=== PATIENT | male | born 2000 | race African-American/Black ===

== ENCOUNTER 2021-08-20 11:38 | Emergency (ER) | payer OTHER ==
[2021-08-20 12:15] VITALS: BP 144/78; PULSE 67; RESP 18; TEMP 98.2
--- NOTE | 2021-08-20 12:46 | ED ---
General Adult HPI - General Chief complaint: Headache Stated complaint: headache, sore arm, wants Covid test Time Seen by Provider: 08/20/21 12:19 Source: patient Mode of arrival: ambulatory - History of Present Illness Initial comments: 21-year-old male presents to the emergency room for a chief complaint of headache. Patient states he hasn't felt well and has had a headache for the past 3 or 4 days. States it worsened last night while he was at work. He denies blurry vision or nausea vomiting. Denies fevers. Patient is also complaining of left shoulder pain. States it hurts to raise his arm above shoulder level. He does not recall injuring this. Patient is also requesting an inhaler. States he just moved to the area and did not bring his and would like a prescription.Patient has no other complaints at this time including shortness of breath, chest pain, abdominal pain, nausea or vomiting, or visual changes. - Related Data Allergies Allergy/AdvReac Type Severity Reaction Status Date / Time guaifenesin [From Robitussin] AdvReac Anaphylaxis Verified 08/20/21 12:15 Review of Systems ROS Statement: Those systems with pertinent positive or pertinent negative responses have been documented in the HPI. ROS Other: All systems not noted in ROS Statement are negative. Past Medical History Past Medical History: Asthma History of Any Multi-Drug Resistant Organisms: None Reported Past Surgical History: No Surgical Hx Reported Past Psychological History: No Psychological Hx Reported Smoking Status: Current every day smoker Past Alcohol Use History: None Reported Past Drug Use History: None Reported General Exam General appearance: alert, in no apparent distress Head exam: Present: atraumatic Eye exam: Present: normal appearance, PERRL, EOMI. Absent: scleral icterus, conjunctival injection ENT exam: Present: normal exam, mucous membranes moist Neck exam: Present: normal inspection, full ROM. Absent: tenderness Respiratory exam: Present: normal lung sounds bilaterally. Absent: respiratory distress, wheezes Cardiovascular Exam: Present: regular rate, normal rhythm, normal heart sounds GI/Abdominal exam: Present: soft, normal bowel sounds. Absent: distended, tenderness Extremities exam: Present: normal capillary refill (Capillary refill less than 2 seconds, radial pulse 2+ left upper extremity). Absent: full ROM (Patient has 90 flexion and abduction and of the left shoulder), tenderness, joint swelling Neurological exam: Present: alert, oriented X3, normal gait Course Vital Signs 08/20/21 12:10 Temperature 98.2 F Pulse Rate 67 Respiratory 18 Rate Blood Pressure 144/78 O2 Sat by Pulse 100 Oximetry Medical Decision Making - Medical Decision Making Vitals are stable. No focal neurologic deficits. HPI and physical exam as documented. COVID-19 did result as negative. Chest x-ray shows no acute cardiopulmonary process. Shoulder x-ray shows no acute osseous abnormality. CT brain shows no acute cranial hemorrhage mass effect or midline shift. Toradol was ordered for patient. Before I could go back in there he is adamantly requesting discharge to the nurse. I did go reevaluate him and he states he wants to leave. I did recommend he follow up with primary care regarding his headache and shoulder pain. He will return here for any worsening symptoms. - Lab Data Lab Results 08/20/21 Range/Units 12:27 Coronavirus (PCR) Not Detected (Not Detectd) Disposition Clinical Impression: Shoulder pain, left, Headache Disposition: HOME SELF-CARE Condition: Good Instructions (If sedation given, give patient instructions): Acute Headache (ED) Additional Instructions: Take Motrin and Tylenol for pain. Follow-up with primary care in 1-2 days. Return to the emergency room for any worsening symptoms. Is patient prescribed a controlled substance at d/c from ED?: No Referrals: Jass Gonzalez MD [REFERRING] - 1-2 days Time of Disposition: 14:13
--- NOTE | 2021-08-20 13:36 | XR ---
EXAMINATION TYPE: XR chest 2V, XR shoulder complete 3 views LT DATE OF EXAM: 08/20/2021 COMPARISON: None HISTORY: 21-year-old male with near syncopal episode and pain, dysrhythmia. FINDINGS: Chest: The cardiomediastinal silhouette, aorta, and pulmonary vasculature are within normal limits. There is some strandy areas of atelectasis. No consolidation or pleural effusion. Normal variant azygos fissu re noted. Left shoulder: No tendinous or bursal calcifications. AC joint appears intact. Subacromial space is preserved. No ac luz maria fracture, subluxation, or dislocation. IMPRESSION: 1. Chest: No acute cardiopulmonary process. 2. Left shoulder: No acute osseous abnormality seen.
--- NOTE | 2021-08-20 13:41 | CT ---
EXAMINATION TYPE: CT brain wo con DATE OF EXAM: 08/20/2021 COMPARISON: None HISTORY: Headache CT DLP: 1084.4 mGycm. Automated Exposure Control for Dose Reduction was Utilized. TECHNIQUE: CT scan of the head is performed without contrast. FINDINGS: There is no acute intracranial hemorrhage, mass effect, or midline shift identified. The ventricles and sulci are within normal limits in size. The globes are intact and the visualized sin uses are clear. Low-lying cerebellar tonsils at the level of foramen magnum. IMPRESSION: No acute intracranial hemorrhage, mass effect, or midline shift is seen.
[2021-08-20] MEDS ORDERED: KETOROLAC 15 MG/ML 1 ML VIAL IM STA (14:02)
== END 2021-08-20 14:23 | disposition home or self-care (01) ==
LOC: EC 11:38
DX: R51.9 Headache, unspecified (principal); M25.512 Pain in left shoulder; F17.200 Nicotine dependence, unspecified, uncomplicated; J45.909 Unspecified asthma, uncomplicated; Z20.822 Contact with and (suspected) exposure to COVID-19; Z88.8 Allergy status to other drugs, medicaments and biological substances
CPT/HCPCS: 87635; 73030; 71046; 70450; 99284; 96372; J1885

== ENCOUNTER 2021-10-04 08:51 | Emergency (ER) | payer OTHER ==
[2021-10-04 09:01] VITALS: RESP 18
--- NOTE | 2021-10-04 09:52 | ED ---
General Adult HPI - General Chief complaint: Upper Respiratory Infection Stated complaint: Covid test Time Seen by Provider: 10/04/21 09:00 Source: patient, RN notes reviewed Mode of arrival: ambulatory Limitations: no limitations - History of Present Illness Initial comments: 21-year-old male presents emergency apartment with chief complaint of possible COVID-19. Patient states his roommate tested positive. Patient had a mild headache no other major symptoms. Denies any fevers chills nausea vomiting diarrhea constipation or shortness breath no other complaints. - Related Data Previous Rx's Medication Instructions Recorded Albuterol Inhaler [Ventolin Hfa 2 puff INHALATION RT-QID PRN #8 gm 08/20/21 Inhaler] Allergies Allergy/AdvReac Type Severity Reaction Status Date / Time guaifenesin [From Robitussin] AdvReac Anaphylaxis Verified 10/04/21 09:01 Review of Systems ROS Statement: Those systems with pertinent positive or pertinent negative responses have been documented in the HPI. ROS Other: All systems not noted in ROS Statement are negative. Past Medical History Past Medical History: Asthma History of Any Multi-Drug Resistant Organisms: None Reported Past Surgical History: No Surgical Hx Reported Past Psychological History: No Psychological Hx Reported Smoking Status: Current every day smoker, Vaper Past Alcohol Use History: None Reported Past Drug Use History: None Reported General Exam Limitations: no limitations General appearance: alert, in no apparent distress Head exam: Present: atraumatic, normocephalic, normal inspection Eye exam: Present: normal appearance, PERRL, EOMI. Absent: scleral icterus, conjunctival injection, periorbital swelling ENT exam: Present: normal exam, mucous membranes moist Neck exam: Present: normal inspection. Absent: tenderness, meningismus, lymphadenopathy Respiratory exam: Present: normal lung sounds bilaterally. Absent: respiratory distress, wheezes, rales, rhonchi, stridor Cardiovascular Exam: Present: regular rate, normal rhythm, normal heart sounds. Absent: systolic murmur, diastolic murmur, rubs, gallop, clicks Course Vital Signs 10/04/21 10/04/21 08:59 09:20 Temperature 97.8 F Pulse Rate 75 Respiratory 18 18 Rate Blood Pressure 131/81 O2 Sat by Pulse 98 Oximetry Medical Decision Making - Medical Decision Making COVID-19 is negative. Patient be discharged in stable condition return parameters were discussed. - Lab Data Lab Results 10/04/21 Range/Units 09:11 Coronavirus (PCR) Not Detected (Not Detectd) Disposition Clinical Impression: Encounter for laboratory testing for COVID-19 virus, Acute upper respiratory infection Disposition: HOME SELF-CARE Condition: Stable Instructions (If sedation given, give patient instructions): Upper Respiratory Infection (ED) Additional Instructions: Please return to the Emergency Department if symptoms worsen or any other concerns. Is patient prescribed a controlled substance at d/c from ED?: No Referrals: None,Stated [Primary Care Provider] - 1-2 days Time of Disposition: 09:51
[2021-10-04 10:14] VITALS: BP 128/80; PULSE 78; TEMP 98.1
== END 2021-10-04 10:14 | disposition home or self-care (01) ==
LOC: EC 08:51
DX: J06.9 Acute upper respiratory infection, unspecified (principal); J45.909 Unspecified asthma, uncomplicated; F17.200 Nicotine dependence, unspecified, uncomplicated; Z20.822 Contact with and (suspected) exposure to COVID-19
CPT/HCPCS: 87635; 99284

== ENCOUNTER 2021-10-09 08:39 | Emergency (ER) | payer OTHER ==
[2021-10-09 08:48] VITALS: BP 137/81; PULSE 87; RESP 16; TEMP 97.3
--- NOTE | 2021-10-09 09:30 | ED ---
General Adult HPI - General Chief complaint: Recheck/Abnormal Lab/Rx Stated complaint: covid test Time Seen by Provider: 10/09/21 08:42 Source: patient, RN notes reviewed Mode of arrival: ambulatory Limitations: no limitations - History of Present Illness Initial comments: This a 21-year-old male presents emergency Department requestin testing. Patient states that he had a rheumatoid tested positive he is to 50 days ago which was negative. Patient denies any significant symptoms. Patient offers no complaints. - Related Data Previous Rx's Medication Instructions Recorded Albuterol Inhaler [Ventolin Hfa 2 puff INHALATION RT-QID PRN #8 gm 08/20/21 Inhaler] Allergies Allergy/AdvReac Type Severity Reaction Status Date / Time guaifenesin [From Robitussin] AdvReac Anaphylaxis Verified 10/09/21 08:48 Review of Systems ROS Statement: Those systems with pertinent positive or pertinent negative responses have been documented in the HPI. ROS Other: All systems not noted in ROS Statement are negative. Past Medical History Past Medical History: Asthma History of Any Multi-Drug Resistant Organisms: None Reported Past Surgical History: No Surgical Hx Reported Past Psychological History: No Psychological Hx Reported Smoking Status: Current every day smoker, Vaper Past Alcohol Use History: None Reported Past Drug Use History: None Reported General Exam Limitations: no limitations General appearance: alert, in no apparent distress Head exam: Present: atraumatic, normocephalic, normal inspection Eye exam: Present: normal appearance, PERRL, EOMI. Absent: scleral icterus, conjunctival injection, periorbital swelling ENT exam: Present: normal exam, mucous membranes moist Neck exam: Present: normal inspection, full ROM. Absent: tenderness, meningismus, lymphadenopathy Respiratory exam: Present: normal lung sounds bilaterally. Absent: respiratory distress, wheezes, rales, rhonchi, stridor Cardiovascular Exam: Present: regular rate, normal rhythm, normal heart sounds. Absent: systolic murmur, diastolic murmur, rubs, gallop, clicks Course Vital Signs 10/09/21 08:45 Temperature 97.3 F L Pulse Rate 87 Respiratory 16 Rate Blood Pressure 137/81 O2 Sat by Pulse 96 Oximetry Medical Decision Making - Medical Decision Making Patient has negative COVID-19. - Lab Data Lab Results 10/09/21 Range/Units 08:49 Coronavirus (PCR) Not Detected (Not Detectd) Disposition Clinical Impression: Encounter for laboratory testing for COVID-19 virus Disposition: HOME SELF-CARE Condition: Stable Additional Instructions: Please return to the Emergency Department if symptoms worsen or any other concerns. Is patient prescribed a controlled substance at d/c from ED?: No Referrals: None,Stated [Primary Care Provider] - 1-2 days Time of Disposition: 09:30
== END 2021-10-09 09:41 | disposition home or self-care (01) ==
LOC: EC 08:39
DX: Z11.52 Encounter for screening for COVID-19 (principal); Z20.822 Contact with and (suspected) exposure to COVID-19
CPT/HCPCS: 87635; 99282

== ENCOUNTER 2021-11-11 12:21 | Emergency (ER) | payer OTHER ==
[2021-11-11 12:36] VITALS: TEMP 98.1
--- NOTE | 2021-11-11 13:37 | ED ---
General Adult HPI - General Chief complaint: Recheck/Abnormal Lab/Rx Stated complaint: wants covid test/no symptoms Time Seen by Provider: 11/11/21 12:40 Source: patient, RN notes reviewed Mode of arrival: ambulatory Limitations: no limitations - History of Present Illness Initial comments: This is a 21-year-old male who presents to the emergency department for a COVID test. States that this is required by his employer, because he lives with someone who tested positive. Patient states he is completely asymptomatic. - Related Data Previous Rx's Medication Instructions Recorded Albuterol Inhaler [Ventolin Hfa 2 puff INHALATION RT-QID PRN #8 gm 08/20/21 Inhaler] Allergies Allergy/AdvReac Type Severity Reaction Status Date / Time guaifenesin [From Robitussin] AdvReac Anaphylaxis Verified 11/11/21 12:36 Review of Systems ROS Statement: Those systems with pertinent positive or pertinent negative responses have been documented in the HPI. ROS Other: All systems not noted in ROS Statement are negative. Past Medical History Past Medical History: Asthma History of Any Multi-Drug Resistant Organisms: None Reported Past Surgical History: No Surgical Hx Reported Past Psychological History: No Psychological Hx Reported Smoking Status: Current every day smoker, Vaper Past Alcohol Use History: None Reported Past Drug Use History: None Reported General Exam Limitations: no limitations General appearance: alert, in no apparent distress Head exam: Present: atraumatic, normocephalic, normal inspection ENT exam: Present: normal exam, mucous membranes moist Neck exam: Present: normal inspection. Absent: tenderness, meningismus, lymphadenopathy Respiratory exam: Present: normal lung sounds bilaterally. Absent: respiratory distress, wheezes, rales, rhonchi, stridor Cardiovascular Exam: Present: regular rate, normal rhythm, normal heart sounds. Absent: systolic murmur, diastolic murmur, rubs, gallop, clicks Neurological exam: Present: alert, oriented X3, CN II-XII intact Psychiatric exam: Present: normal affect, normal mood Skin exam: Present: warm, dry, intact, normal color. Absent: rash Course Vital Signs 11/11/21 11/11/21 12:32 13:43 Temperature 98.1 F 98.1 F Pulse Rate 74 73 Respiratory 18 16 Rate Blood Pressure 132/87 132/78 O2 Sat by Pulse 98 98 Oximetry Medical Decision Making - Medical Decision Making 21-year-old male who presents to the emergency department for a COVID test. Patient is completely asymptomatic. COVID test was negative. - Lab Data Lab Results 11/11/21 Range/Units 12:36 Coronavirus (PCR) Not Detected (Not Detectd) Disposition Clinical Impression: Exposure to COVID-19 virus Disposition: HOME SELF-CARE Instructions (If sedation given, give patient instructions): Coronavirus Disease 2019 (COVID-19) Is patient prescribed a controlled substance at d/c from ED?: No Referrals: None,Stated [Primary Care Provider] - 1-2 days
[2021-11-11 13:44] VITALS: BP 132/78; PULSE 73; RESP 16
== END 2021-11-11 13:43 | disposition home or self-care (01) ==
LOC: EC 12:21
DX: Z20.822 Contact with and (suspected) exposure to COVID-19 (principal); J45.909 Unspecified asthma, uncomplicated; F17.290 Nicotine dependence, other tobacco product, uncomplicated
CPT/HCPCS: 87635; 99282

== ENCOUNTER 2022-12-16 19:07 | Emergency (ER) | payer OTHER ==
[2022-12-16 19:14] VITALS: BP 142/94; PULSE 72; RESP 20; TEMP 98.9
--- NOTE | 2022-12-16 19:38 | XR ---
EXAMINATION TYPE: XR chest 2V DATE OF EXAM: 12/16/2022 7:31 PM COMPARISON: Chest radiographs from 12/11/2021 TECHNIQUE: XR chest 2V Frontal and lateral views of the chest. CLINICAL INDICATION:Male, 22 years old with history of pain; FINDINGS: Lungs/Pleura: Similar multifocal airspace opacities. No evidence of pneumothorax or pleural effusion. Pulmonary vascularity: Unremarkable. Heart/mediastinum: Cardiomediastinal silhouette is unremarkable. Increased perihilar fullness on the right compared to prior and to a lesser extent the left. Musculoskeletal: No acute osseous pathology. IMPRESSION: 1. Scattered airspace opacities of the lungs, correlate for pneumonia. 2. Increased perihilar fullness bilaterally which is new from prior 12/11/2021. Findings favored to re present lymphadenopathy. Further evaluation with CT chest with IV contrast is recommended. Findings c ould be secondary to #1.
--- NOTE | 2022-12-16 21:18 | ED ---
General Adult HPI - General Chief complaint: Chest Pain Stated complaint: chest pain Time Seen by Provider: 12/16/22 21:02 Source: patient, EMS, RN notes reviewed Mode of arrival: EMS Limitations: no limitations - History of Present Illness Initial comments: 22-year-old -[place] male with a past medical history significant for prescription drug abuse presents the emergency department from [place] with a chief complaint of chest pain. Patient reports that he's had chest pain on and off for years. 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 He reports the chest pain as sharp that will come and go. He is not taking anything for his symptoms. He denies any alcohol or tobacco use recently. He denies any vision changes, vision loss, dizziness, lightheadedness, palpitations, shortness of breath, abdominal pain, nausea or vomiting. - Related Data Previous Rx's Medication Instructions Recorded Albuterol Inhaler [Ventolin Hfa 2 puff INHALATION RT-QID PRN #8 gm 08/20/21 Inhaler] Allergies Allergy/AdvReac Type Severity Reaction Status Date / Time guaifenesin [From Robitussin] AdvReac Anaphylaxis Verified 12/16/22 19:14 Review of Systems ROS Statement: Those systems with pertinent positive or pertinent negative responses have been documented in the HPI. ROS Other: All systems not noted in ROS Statement are negative. Past Medical History Past Medical History: Asthma History of Any Multi-Drug Resistant Organisms: None Reported Past Surgical History: No Surgical Hx Reported Past Psychological History: No Psychological Hx Reported Smoking Status: Current every day smoker, Vaper Past Alcohol Use History: None Reported Past Drug Use History: Marijuana General Exam Limitations: no limitations General appearance: alert, in no apparent distress Head exam: Present: atraumatic, normocephalic, normal inspection Eye exam: Present: normal appearance, PERRL, EOMI. Absent: scleral icterus, conjunctival injection, periorbital swelling ENT exam: Present: normal exam, mucous membranes moist Neck exam: Present: normal inspection. Absent: tenderness, meningismus, lymphadenopathy Respiratory exam: Present: normal lung sounds bilaterally. Absent: respiratory distress, wheezes, rales, rhonchi, stridor Cardiovascular Exam: Present: regular rate, normal rhythm, normal heart sounds. Absent: systolic murmur, diastolic murmur, rubs, gallop, clicks GI/Abdominal exam: Present: soft, normal bowel sounds. Absent: distended, tenderness, guarding, rebound, rigid Extremities exam: Present: normal inspection, full ROM, normal capillary refill. Absent: tenderness, pedal edema, joint swelling, calf tenderness Back exam: Present: normal inspection Neurological exam: Present: alert, oriented X3, CN II-XII intact Psychiatric exam: Present: normal affect, normal mood Skin exam: Present: warm, dry, intact, normal color. Absent: rash Course Vital Signs 12/16/22 19:11 Temperature 98.9 F Pulse Rate 72 Respiratory 20 Rate Blood Pressure 142/94 O2 Sat by Pulse 100 Oximetry EKG Findings - EKG Comments: EKG Findings:: I interpreted the following: EKG performed at 1907. Rate 74 bpm normal sinus rhythm NV interval 141, QRS duration 91, QT/QTc 332/359 Medical Decision Making - Medical Decision Making Was pt. sent in by a medical professional or institution (, PA, COURTROOM CLERK, urgent care, hospital, or care home...) When possible be specific @ -[No] Did you speak to anyone other than the patient for history (EMS, parent, family, police, friend...)? What history was obtained from this source @ -[No] Did you review nursing and triage notes (agree or disagree)? Why? @ -[I reviewed and agree with nursing and triage notes] Were old charts reviewed (outside hosp., previous admission, EMS record, old EKG, old radiological studies, urgent care reports/EKG's, care home records)? Report findings @ -[No old charts were reviewed] Differential Diagnosis (chest pain, altered mental status, abdominal pain women, abdominal pain men, vaginal bleeding, weakness, fever, dyspnea, syncope, headache, dizziness, GI bleed, back pain, seizure, CVA, palpatations, mental health, musculoskeletal)? @ -[not applicable] EKG interpreted by me (3pts min.). @ -[As above] X-rays interpreted by me (1pt min.). @ -chest x-ray negative for any intra pleural process, no cardiomegaly CT interpreted by me (1pt min.). @ -[None done] U/S interpreted by me (1pt. min.). @ -[None done] What testing was considered but not performed or refused? (CT, X-rays, U/S, labs)? Why? @ -[None] What meds were considered but not given or refused? Why? @ -[None] Did you discuss the management of the patient with other professionals (professionals i.e. , PA, COURTROOM CLERK, lab, RT, psych nurse, social media strategist, stove fitter, teacher, first officer and flight instructor, outsole caser)? Give summary @ -[No] Was smoking cessation discussed for >3mins.? @ -[No] Was critical care preformed (if so, how long)? @ -[No] Were there social determinants of health that impacted care today? How? (Homelessness, low income, unemployed, alcoholism, drug addiction, transportation, low edu. Level, literacy, decrease access to med. care, longterm, rehab)? @ -[No] Was there de-escalation of care discussed even if they declined (Discuss DNR or withdrawal of care, Hospice)? DNR status @ -[No] What co-morbidities impacted this encounter? (DM, HTN, Smoking, COPD, CAD, Cancer, CVA, ARF, Chemo, Hep., AIDS, mental health diagnosis, sleep apnea, morbid obesity)? @ -[None] Was patient admitted / discharged? Hospital course, mention meds given and route, prescriptions, significant lab abnormalities, going to OR and other pertinent info. @ -discharged. This is a 22-year-old -[place] male who presents the emergency department with chest pain. Patient had a thorough history and physical exam while in the emergency department. Heart rate regular rate and rhythm, lungs clear to auscultation bilaterally abdomen soft and nontender. States that he would like to return back to [place] for treatment. I discussed the results in detail with the patient verbalized understanding and all questions were addressed. Patient was discharged in stable condition. He was strongly encouraged to follow up with PCP in 1-2 days. Case discussed with TALYA Tinoco who agrees with plan of care Undiagnosed new problem with uncertain prognosis? @ -[No] Drug Therapy requiring intensive monitoring for toxicity (Heparin, Nitro, Insulin, Cardizem)? @ -[No] Were any procedures done? @ -[No] Diagnosis/symptom? @ -chest pain Acute, or Chronic, or Acute on Chronic? @ -admission Uncomplicated (without systemic symptoms) or Complicated (systemic symptoms)? @ -uncomplicated Side effects of treatment? @ -[No] Exacerbation, Progression, or Severe Exacerbation? @ -[No] Poses a threat to life or bodily function? How? (Chest pain, [place], [place], pneumonia, PE, COPD, DKA, ARF, appy, cholecystitis, CVA, Diverticulitis, Homicidal, Suicidal, threat to staff... and all critical care pts) @ -low likelihood - Lab Data Result diagrams: 12/16/22 21:46 12/16/22 21:46 Lab Results 12/16/22 12/16/22 12/16/22 Range/Units 21:46 21:46 21:46 WBC 4.2 (3.8-10.6) k/uL RBC 5.40 (4.30-5.90) m/uL Hgb 15.4 (13.0-17.5) gm/dL Hct 45.2 (39.0-53.0) % MCV 83.7 (80.0-100.0) fL MCH 28.5 (25.0-35.0) pg MCHC 34.0 (31.0-37.0) g/dL RDW 13.5 (11.5-15.5) % Plt Count 398 (150-450) k/uL MPV 6.3 Neutrophils % 63 % Lymphocytes % 21 % Monocytes % 8 % Eosinophils % 3 % Basophils % 1 % Neutrophils # 2.7 (1.3-7.7) k/uL Lymphocytes # 0.9 L (1.0-4.8) k/uL Monocytes # 0.3 (0-1.0) k/uL Eosinophils # 0.2 (0-0.7) k/uL Basophils # 0.0 (0-0.2) k/uL Sodium 137 (137-145) mmol/L Potassium 4.2 (3.5-5.1) mmol/L Chloride 101 (98-107) mmol/L Carbon Dioxide 26 (22-30) mmol/L Anion Gap 10 mmol/L BUN 10 (9-20) mg/dL Creatinine 0.59 L (0.66-1.25) mg/dL Est GFR (CKD-EPI)AfAm >90 (>60 ml/min/1.73 sqM) Est GFR (CKD-EPI)NonAf >90 (>60 ml/min/1.73 sqM) Glucose 89 (74-99) mg/dL Calcium 10.0 (8.4-10.2) mg/dL Total Bilirubin 0.8 (0.2-1.3) mg/dL AST 38 (17-59) U/L ALT 31 (4-49) U/L Alkaline Phosphatase 93 (38-126) U/L Troponin I <0.012 (0.000-0.034) ng/mL Total Protein 7.7 (6.3-8.2) g/dL Albumin 4.3 (3.5-5.0) g/dL Disposition Clinical Impression: Chest pain Disposition: HOME SELF-CARE Condition: Stable Instructions (If sedation given, give patient instructions): Chest Pain (ED) Additional Instructions: please return to the nearest emergency department if symptoms worsen or persist Is patient prescribed a controlled substance at d/c from ED?: No Referrals: None,Stated [REFERRING] - 1-2 days Time of Disposition: 22:27
[2022-12-16 21:57] LABS: Basophils % (A) 1 %; Eosinophils # (A) 0.2 k/uL (0-0.7); Eosinophils % (A) 3 %; HCT 45.2 % (39.0-53.0); HGB 15.4 gm/dL (13.0-17.5); Lymphocytes # (A) 0.9 k/uL (1.0-4.8); Lymphocytes % (A) 21 %; MCH 28.5 pg (25.0-35.0); MCV 83.7 fL (80.0-100.0); Mean Platelet Volume 6.3; Monocytes # (A) 0.3 k/uL (0-1.0); Monocytes % (A) 8 %; Neutrophils # (A) 2.7 k/uL (1.3-7.7); Neutrophils % (A) 63 %; Platelet Count 398 k/uL (150-450); RDW 13.5 % (11.5-15.5); WBC 4.2 k/uL (3.8-10.6)
[2022-12-16 22:11] LABS: ALT 31 U/L (4-49); AST 38 U/L (17-59); African American GFR (CKD) >90 (>60 ml/min/1.73 sqM); Albumin 4.3 g/dL (3.5-5.0); Alkaline Phosphatase 93 U/L (38-126); Anion Gap 10 mmol/L; Blood Urea Nitrogen 10 mg/dL (9-20); Carbon Dioxide 26 mmol/L (22-30); Chloride 101 mmol/L (98-107); Glucose 89 mg/dL (74-99); Non-African American GFR(CKD) >90 (>60 ml/min/1.73 sqM); Potassium 4.2 mmol/L (3.5-5.1); Sodium 137 mmol/L (137-145); Total Bilirubin 0.8 mg/dL (0.2-1.3); Total Protein 7.7 g/dL (6.3-8.2)
== END 2022-12-16 23:29 | disposition home or self-care (01) ==
LOC: EC 19:07
DX: R07.89 Other chest pain (principal); J45.909 Unspecified asthma, uncomplicated; F17.290 Nicotine dependence, other tobacco product, uncomplicated; F12.90 Cannabis use, unspecified, uncomplicated; Z88.8 Allergy status to other drugs, medicaments and biological substances
CPT/HCPCS: 36415; 71046; 80053; 84484; 85025; 93005; 99285

== ENCOUNTER 2023-01-20 15:35 | Emergency (ER) | payer OTHER ==
[2023-01-20 15:52] VITALS: BP 135/84; PULSE 96; RESP 16; TEMP 97.4
--- NOTE | 2023-01-20 16:18 | ED ---
General Adult HPI - General Chief complaint: Skin/Abscess/Foreign Body Stated complaint: LUMP ON NECK-NECK PAIN Time Seen by Provider: 01/20/23 16:04 Source: patient, RN notes reviewed Mode of arrival: ambulatory Limitations: no limitations - History of Present Illness Initial comments: 22-year-old male presents to the emergency department with chief complaint of lump on the right side of his neck. He states that his been there for at least 3 months and states that it has gotten more tender recently. He states that he sometimes feels other lumps in his neck but they are nontender. Denies recent illness, fever, chills. Denies discharge from the area. Past medical history includes asthma. He takes Remeron for sleep. - Related Data Previous Rx's Medication Instructions Recorded Albuterol Inhaler [Ventolin Hfa 2 puff INHALATION RT-QID PRN #8 gm 08/20/21 Inhaler] Allergies Allergy/AdvReac Type Severity Reaction Status Date / Time guaifenesin [From Robitussin] AdvReac Anaphylaxis Verified 01/20/23 15:49 Review of Systems ROS Statement: Those systems with pertinent positive or pertinent negative responses have been documented in the HPI. ROS Other: All systems not noted in ROS Statement are negative. Past Medical History Past Medical History: Asthma History of Any Multi-Drug Resistant Organisms: None Reported Past Surgical History: No Surgical Hx Reported Past Psychological History: No Psychological Hx Reported Smoking Status: Current every day smoker, Vaper Past Alcohol Use History: None Reported Past Drug Use History: Marijuana, Prescription Drug Abuse General Exam Limitations: no limitations General appearance: alert, in no apparent distress Head exam: Present: atraumatic, normocephalic, normal inspection Eye exam: Present: normal appearance ENT exam: Present: normal exam, mucous membranes moist Neck exam: Present: full ROM, other (1.5cm mass on right posterior neck that is mildly ttp, no erythema, possible lymph node) Respiratory exam: Present: normal lung sounds bilaterally. Absent: respiratory distress, wheezes, rales, rhonchi, stridor Cardiovascular Exam: Present: regular rate, normal rhythm, normal heart sounds. Absent: systolic murmur, diastolic murmur, rubs, gallop, clicks GI/Abdominal exam: Present: soft, normal bowel sounds. Absent: distended, tenderness, guarding, rebound, rigid Extremities exam: Present: normal inspection, full ROM, normal capillary refill. Absent: tenderness, pedal edema, joint swelling, calf tenderness Back exam: Present: normal inspection Neurological exam: Present: alert, oriented X3 Psychiatric exam: Present: normal affect, normal mood Skin exam: Present: warm, dry, intact, normal color. Absent: rash Course Vital Signs 01/20/23 15:49 Temperature 97.4 F L Pulse Rate 96 Respiratory 16 Rate Blood Pressure 135/84 O2 Sat by Pulse 100 Oximetry Medical Decision Making - Medical Decision Making Was pt. sent in by a medical professional or institution (, RAVI, CLINICAL ACCOUNT EXECUTIVE, urgent care, hospital, or correction...) When possible be specific @ -No Did you speak to anyone other than the patient for history (EMS, parent, family, police, friend...)? What history was obtained from this source @ -No Did you review nursing and triage notes (agree or disagree)? Why? @ -I reviewed and agree with nursing and triage notes Were old charts reviewed (outside hosp., previous admission, EMS record, old EKG, old radiological studies, urgent care reports/EKG's, correction records)? Report findings @ -No old charts were reviewed Differential Diagnosis (chest pain, altered mental status, abdominal pain women, abdominal pain men, vaginal bleeding, weakness, fever, dyspnea, syncope, headache, dizziness, GI bleed, back pain, seizure, CVA, palpatations, mental health, musculoskeletal)? @ -cyst, abscess, lymphadenitis, this list is not all inclusive EKG interpreted by me (3pts min.). @ -none X-rays interpreted by me (1pt min.). @ -None done CT interpreted by me (1pt min.). @ -None done U/S interpreted by me (1pt. min.). @ -Ultrasound soft tissue interpreted by me was obtained which showed a likely cyst What testing was considered but not performed or refused? (CT, X-rays, U/S, labs)? Why? @ -None What meds were considered but not given or refused? Why? @ -None Did you discuss the management of the patient with other professionals (professionals i.e. RAVI José, CLINICAL ACCOUNT EXECUTIVE, lab, RT, psych nurse, social work therapist, screen printing supervisor, teacher, co founder and chief strategy officer, dependency case manager)? Give summary @ -No Was smoking cessation discussed for >3mins.? @ -No Was critical care preformed (if so, how long)? @ -No Were there social determinants of health that impacted care today? How? (Homelessness, low income, unemployed, alcoholism, drug addiction, transportation, low edu. Level, literacy, decrease access to med. care, senior living, rehab)? @ -No Was there de-escalation of care discussed even if they declined (Discuss DNR or withdrawal of care, Hospice)? DNR status @ -No What co-morbidities impacted this encounter? (DM, HTN, Smoking, COPD, CAD, Cancer, CVA, ARF, Chemo, Hep., AIDS, mental health diagnosis, sleep apnea, morbid obesity)? @ -None Was patient admitted / discharged? Hospital course, mention meds given and route, prescriptions, significant lab abnormalities, going to OR and other pertinent info. @ -discharged. Patient presented to the emergency department with chief complaint of lump on neck x3 months. On examination, patient had a1.5-2cm lump on his posterior neck which was nonerythematous and nonfluctuant, with no apparent drainage visible. US was performed which showed possible cyst. Discussed with patient that it was not something i would be able to drain in the emergency department. Advised PCP follow up for referral to surgeon or dermatology. Patient discharged in stable condition. Case discussed with my attending, Dr. Toledo Undiagnosed new problem with uncertain prognosis? @ -No Drug Therapy requiring intensive monitoring for toxicity (Heparin, Nitro, Insulin, Cardizem)? @ -No Were any procedures done? @ -No Diagnosis/symptom? @ -cyst Acute, or Chronic, or Acute on Chronic? @ -acute on chronic Uncomplicated (without systemic symptoms) or Complicated (systemic symptoms)? @ -uncomplicated Side effects of treatment? @ -No Exacerbation, Progression, or Severe Exacerbation? @ -No Poses a threat to life or bodily function? How? (Chest pain, USA, [place], pneumonia, PE, COPD, DKA, ARF, appy, cholecystitis, CVA, Diverticulitis, Homicidal, Suicidal, threat to staff... and all critical care pts) @ -No Disposition Clinical Impression: Cyst of neck Disposition: HOME SELF-CARE Condition: Stable Instructions (If sedation given, give patient instructions): Cyst (ED) Additional Instructions: Please return to the Emergency Department if symptoms worsen or any other concerns. Is patient prescribed a controlled substance at d/c from ED?: No Referrals: Jett Carter DO [Primary Care Provider] - 1-2 days Time of Disposition: 17:36
--- NOTE | 2023-01-20 17:19 | US ---
EXAMINATION TYPE: US thyroid st tissue head/neck DATE OF EXAM: 01/20/2023 COMPARISON: EXAMINATION TYPE: US thyroid st tissue head/neck DATE OF EXAM: 01/20/2023 COMPARISON: NONE CLINICAL INDICATION: Male, 22 years old with history of right neck; Lump right neck x 2 months. TECHNIQUE: FINDINGS: Hypoechoic area seen 1.9 x 1.5 x .8 cm right neck . Well-defined oval 1.9 cm hypoechoic anechoic lesion with some increased through transmission and no v ascularity and palpable abnormality right neck. This is just below the dermal layer. IMPRESSION: Probable thin-walled 1.9 cm cyst or cystic lesion. Advise contrast enhanced CT or MRI to further evaluate.
== END 2023-01-20 17:43 | disposition home or self-care (01) ==
LOC: EC 15:35
DX: R22.1 Localized swelling, mass and lump, neck (principal); J45.909 Unspecified asthma, uncomplicated; F12.90 Cannabis use, unspecified, uncomplicated; F17.290 Nicotine dependence, other tobacco product, uncomplicated; Z88.8 Allergy status to other drugs, medicaments and biological substances
CPT/HCPCS: 76536; 99283

== ENCOUNTER 2023-02-25 08:13 | Day surgery (SDC) | payer OTHER ==
[2023-02-20 15:23] VITALS: BMI 26.3
[~2023-02-25 08:13] MED LIST: ACETAMINOPHEN TAB 500 MG TAB PO PRN; HEPARIN SODIUM,PORCINE/PF 5,000 UNIT/0.5 ML SYRINGE SQ PRN; HYDROmorphone 0.5 MG/0.5 ML SYRINGE IVP PRN; LACTATED RINGERS 1,000 ML IV SCH; ONDANSETRON 4 MG/2 ML VIAL IVP ONE; Pre Op ABX Message 1 EACH MISC MISCELLANE ONE
[2023-02-25 08:45] VITALS: TEMP 98.1
[2023-02-25] MEDS ORDERED: DEXAMETHASONE SOD PHOSPHATE 4 MG/ML 1 ML VIAL IVP ONE (09:09)
[2023-02-25] MEDS ORDERED: fentaNYL (PF) 50 MCG/ML 2 ML AMP ONE (10:34)
[2023-02-25] MEDS ORDERED: MIDAZOLAM 2 MG/2 ML VIAL ONE (10:34)
[2023-02-25] MEDS ORDERED: LIDOCAINE 2% INJ 20 MG/ML (2 ML VIAL) ONE (10:34)
[2023-02-25] MEDS ORDERED: PROPOFOL 10 MG/ML 20 ML VIAL IV ONE (10:34)
[2023-02-25] MEDS ORDERED: SODIUM CHLORIDE 0.9% 50 ML with ceFAZolin 2,000 MG IV ONE ×2 (10:50)
[2023-02-25] MEDS ORDERED: BUPIVACAINE (PF) 0.25% 30 ML VIAL SQ ONE (10:54)
--- NOTE | 2023-02-25 11:06 | P.OP ---
Date of Procedure: 02/25/23 Preoperative Diagnosis: Right cervical lymphadenopathy Postoperative Diagnosis: Defer to pathology Procedure(s) Performed: Excision of right posterior neck lymph node Anesthesia: FREEDOM Surgeon: Rajesh Ibarra Estimated Blood Loss (ml): 5 Pathology: other (Right posterior neck lymph node) Condition: stable Disposition: PACU Description of Procedure: The patient's placed on the operative table in supine position. He received general endotracheal anesthesia. His neck was prepped and draped usual fashion. The patient had a 2 cm posterior cervical neck lymph node. The skin was anesthetized local Xylocaine. Using a 15 blade skin was incised. Then using blunt and sharp dissection with cautery the lymph node was dissected free. Hemostasis was achieved. The skin was closed interrupted 3-0 Monocryl suture. Dermabond dressings was applied. Patient top she will was sent to recovery room in stable condition.
[2023-02-25 11:46] VITALS: RESP 16
[2023-02-25 12:13] VITALS: BP 108/60; PULSE 69
== END 2023-02-25 12:30 | disposition home or self-care (01) ==
LOC: OR 08:13
PROVIDERS: ATTEND Surgery
DX: D36.0 Benign neoplasm of lymph nodes (principal); J45.909 Unspecified asthma, uncomplicated; F12.90 Cannabis use, unspecified, uncomplicated; Z88.8 Allergy status to other drugs, medicaments and biological substances; Z79.899 Other long term (current) drug therapy
CPT/HCPCS: 38510; 88305; J2250; J1100; J2405; J0690; J3010; J2704; J1170; J1644; J2001; 88312

== ENCOUNTER → 2023-02-27 | Outpatient (CLI) | payer OTHER ==
--- NOTE | 2023-02-27 08:13 | US ---
EXAMINATION TYPE: US abdomen complete DATE OF EXAM: 02/27/2023 COMPARISON: NONE CLINICAL INDICATION: Male, 22 years old with history of R79.89 OTHER SPECIFIED ABNORMAL FINDINGS OF B LOOD; TECHNIQUE: Multiple sonographic images of the abdomen are obtained. FINDINGS: EXAM MEASUREMENTS: Liver Length: 15.1 cm Gallbladder Wall: 0.2 cm CBD: 0.5 cm Spleen: 10.5 cm Right Kidney: 10.3 x 3.8 x 5.3 cm Left Kidney: 11.9 x 6.3 x 7.4 cm PLANT CYTOLOGIST NOTES: Pancreas: mostly obscured by bowel gas Liver: wnl Gallbladder: No stones seen Evidence for sonographic Santos's sign: No CBD: wnl Spleen: wnl Right Kidney: No hydronephrosis or masses seen Left Kidney: No hydronephrosis or masses seen Upper IVC: wnl Abd Aorta: wnl. obscured by bowel gas at bifurcation. Multiple soft tissue densities noted near left lobe of iver and mak hepatis, largest measures 4.7 x 2.0 x 3.0 cm. The liver is homogenous. The intrahepatic portion of the IVC and proximal abdominal aorta are within normal limits. There is no evidence of cholelithiasis. Common bile duct is unremarkable. The visu alized portions of the pancreas are homogenous. The spleen is unremarkable. Kidneys are symmetric a nd free of hydronephrosis. No renal lesions are seen. IMPRESSION: 1. CT abdomen pelvis with contrast recommended to exclude adenopathy about the mak hepatis.
== END | disposition home or self-care (01) ==
LOC: RADUSWWP 06:53
PROVIDERS: ATTEND Family Medicine
DX: R79.89 Other specified abnormal findings of blood chemistry (principal)
CPT/HCPCS: 76700

== ENCOUNTER → 2023-03-09 | Outpatient (CLI) | payer OTHER ==
--- NOTE | 2023-03-09 16:02 | CT ---
EXAMINATION TYPE: CT abdomen pelvis w con DATE OF EXAM: 03/09/2023 COMPARISON: None HISTORY: R/O adenopathy about the mak hepatis. CT follow up recommended from prior US done on . CT DLP: 589.6 mGycm CONTRAST: CT scan of the abdomen and pelvis is performed with Oral Contrast and with IV Contrast, patient injec brandon with 100 ml mL of Isovue 300. FINDINGS: LUNG BASES-: There is a partially imaged right hilar adenopathy measuring 2.2 cm. There is mitral nod ularity seen within both visualized lung bermeo. There are also larger nodules measuring up to 7 mm l eft lower lobe pleural-based and right middle lobe subpleural location measuring 6.[address] of the chest is recommended. LIVER/GB: No calcified gallstones. No space occupying hepatic lesion. Biliary tree is of normal ca liber. There is adenopathy about the mak hepatis with 3 lymph node mass is identified measuring 3.1 , 1.7 and 2.4 cm respectively. There is also adenopathy within the gastrohepatic hepatic ligament faraz suring 3.3 cm. PANCREAS: No inflammation. No distinct mass. SPLEEN: No splenic enlargement. No lesion seen. ADRENALS: No nodule. No thickening. KIDNEYS/BLADDER: No hydronephrosis. No nephrolithiasis. No distinct renal mass. Urinary bladder g rossly unremarkable. BOWEL: Normal appendix. Normal bowel caliber. No inflammation. GENITAL ORGANS: No gross abnormality. LYMPH NODES: Numerous enlarged mesenteric lymph nodes are seen measuring up to 1.7 cm. There is also adenopathy within the gastrohepatic hepatic ligament measuring 3.3 cm. Right inguinal lymph node liliaan ures 1.5 cm and left inguinal lymph node measures 1.2 cm. SUBCENTIMETER para-aortic lymph nodes are n oted. AORTA: No significant abnormality. OSSEOUS STRUCTURES: No significant abnormality is seen. OTHER: No significant additional abnormality is seen. IMPRESSION: 1. Multiple enlarged lymph nodes about the mak hepatis, gastrohepatic ligament and within the small bowel mesentery as well as mildly prominent lymph nodes within the inguinal regions. Further workup for lymphoma recommended. 2. Partially imaged adenopathy right hilum as well as multiple pulmonary nodules as discussed above. Dedicated CT of the chest is advised.
== END | disposition home or self-care (01) ==
LOC: RADCTMAIN 13:21
PROVIDERS: ATTEND Family Medicine
DX: R93.5 Abnormal findings on diagnostic imaging of other abdominal regions, including retroperitoneum (principal); R59.0 Localized enlarged lymph nodes
CPT/HCPCS: 74177

== ENCOUNTER → 2023-04-11 | Outpatient (CLI) | payer OTHER ==
--- NOTE | 2023-04-13 09:03 | PE ---
EXAMINATION TYPE: PET CT fusion skull to thigh DATE OF EXAM: 04/11/2023 COMPARISON: EXAMINATION TYPE: PET CT fusion skull to thigh DATE OF EXAM: 04/11/2023 COMPARISON: CT abdomen pelvis 03/09/2023 Prior PET/CT: None HISTORY: Lymphadenopathy TECHNIQUE: Following the intravenous administration of 11 mCi of F-18 FDG, whole body images are per formed from the skull base to the midthigh. Images are reviewed on the computer in the coronal, axia l, and sagittal planes. Reconstructed rotating images are created on independent workstation and rev iewed on the computer. A localization and attenuation correction CT is performed in conjunction wit h the PET scan. DLP: 374.87 mGycm SCAN: Initial Blood glucose: 88 mg/dL Average Mediastinum SUV: 1.33 Average Liver SUV: 1.73 FINDINGS: There is extensive uptake present throughout the neck chest abdomen and pelvis compatible w ith abnormal uptake within lymphadenopathy. Correlate for lymphoma. Reference lesions: NECK: 1. Posterior left neck image 12 SUV 2.89. 2. Right neck image 28 SUV 3.3. 3. Left submandibular parotid region image 30, SUV 5.69. 4. Right supraclavicular, image 34, SUV 6.5 Uptake is within bilateral parotid regions and within supraclavicular lymph nodes bilaterally. Superf icial uptake is noted. THORAX: 1. Uptake within a posterior right lung nodule, image 51 and SUV 5.14 2. Uptake within the right axillary lymph node, image 51, SUV 4.33. 3. Uptake within a left axillary lymph node image 55, SUV 6.83. 4. Pretracheal lymph node, image 63, SUV 4.47. 5. Right infrahilar lymph node, image 73, SUV 5.44. Extensive lymphadenopathy is present including subcarinal bilateral hilar, mediastinal and superior m ediastinal lymph nodes. Uptake is in a posterior right lung nodule. Bilateral axillary lymphadenopath y is present. Uptake is in the paraspinal regions near the diaphragm. ABDOMEN: 1. Uptake within the celiac axis, image 116, SUV 10.55. 2. Uptake within the portal region and mesentery mid abdomen, example image 127, SUV 8.62. 3. Uptake within the mesentery mid abdomen anterior to the aortic bifurcation, image 156, SUV 7.96. PELVIS: 1. Uptake within the mesentery of the mid pelvis, image 172, SUV 7.52. 2. Iliac chain adenopathy, image 186, SUV right 5.66, SUV left 3.33. 3. Inguinal adenopathy, image 205, SUV right 5.5 to. SUV left 4.9. 4. Inguinal adenopathy, image 215, SUV 7.74. Extensive inguinal adenopathy with intense uptake, iliac chain region mesenteric uptake within the pe lvis. OSSEOUS STRUCTURES: No suspicious uptake within the osseous structures. LOCALIZATION CT: There is opacification of the right maxillary sinus. COMPARISON: Adenopathy may be progressive within the abdomen from the comparison of 03/09/2023. IMPRESSION: 1. Extensive abnormal adenopathy throughout the visualized scan region. Reference lesions are discuss ed above. Correlation for lymphoma. 2. There is some uptake within a posterior right lung nodule. Lung neoplasm and metastasis at this le leta posterior right upper lung should be considered.
== END | disposition home or self-care (01) ==
LOC: RADPETMAIN 14:03
PROVIDERS: ATTEND Internal Medicine
DX: R91.1 Solitary pulmonary nodule (principal); R59.0 Localized enlarged lymph nodes
CPT/HCPCS: 78815; A9552

== ENCOUNTER 2023-07-19 14:28 | Emergency (ER) | payer OTHER ==
[2023-07-19 14:53] VITALS: TEMP 97.5
--- NOTE | 2023-07-19 15:55 | ED ---
Upper Extremity HPI - General Chief Complaint: Extremity Injury, Upper Stated Complaint: Left hand injury Time Seen by Provider: 07/19/23 15:40 Source: patient, RN notes reviewed Mode of arrival: ambulatory Limitations: no limitations - History of Present Illness Initial Comments: 22-year-old male presents emergency Department with chief complaint of left hand pain. 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 He states it's difficult to move no paresthesias no other injuries noted denies any other associated symptoms. - Related Data Previous Rx's Medication Instructions Recorded Albuterol Inhaler [Ventolin Hfa 2 puff INHALATION RT-QID PRN #8 gm 08/20/21 Inhaler] Acetaminophen Tab [Tylenol] 650 mg PO Q6H #30 tab 02/25/23 Ibuprofen [Motrin] 600 mg PO Q6HR PRN #40 tab 02/25/23 Allergies Allergy/AdvReac Type Severity Reaction Status Date / Time strawberry Allergy Severe Anaphylaxis- Verified 07/19/23 14:45 throat swelling guaifenesin [From Robitussin] AdvReac Anaphylaxis Verified 07/19/23 14:45 ranch dressing Allergy Unknown Rash/Hives Uncoded 07/19/23 14:45 Review of Systems ROS Statement: Those systems with pertinent positive or pertinent negative responses have been documented in the HPI. ROS Other: All systems not noted in ROS Statement are negative. Past Medical History Past Medical History: Asthma Additional Past Medical History / Comment(s): painful lymph node on back of neck History of Any Multi-Drug Resistant Organisms: None Reported Past Surgical History: No Surgical Hx Reported Additional Past Surgical History / Comment(s): lung bx under anesthesia Past Anesthesia/Blood Transfusion Reactions: No Reported Reaction Past Psychological History: No Psychological Hx Reported Smoking Status: Current every day smoker Past Alcohol Use History: None Reported, Occasional Past Drug Use History: Marijuana, Prescription Drug Abuse General Exam Limitations: no limitations General appearance: alert, in no apparent distress Head exam: Present: atraumatic, normocephalic, normal inspection Eye exam: Present: normal appearance, PERRL, EOMI. Absent: scleral icterus, conjunctival injection, periorbital swelling ENT exam: Present: normal exam, normal oropharynx, mucous membranes moist Neck exam: Present: normal inspection, full ROM. Absent: tenderness, meningismus, lymphadenopathy Respiratory exam: Present: normal lung sounds bilaterally. Absent: respiratory distress, wheezes, rales, rhonchi, stridor Cardiovascular Exam: Present: regular rate, normal rhythm, normal heart sounds. Absent: systolic murmur, diastolic murmur, rubs, gallop, clicks Extremities exam: Present: other (Left hand fourth and fifth digit mild swelling) Course Vital Signs 07/19/23 14:42 Temperature 97.5 F L Pulse Rate 64 Respiratory 18 Rate Blood Pressure 149/95 O2 Sat by Pulse 98 Oximetry Medical Decision Making - Medical Decision Making Was pt. sent in by a medical professional or institution (, PA, THREAD TWISTER, urgent care, hospital, or [facility]...) When possible be specific @ -No Did you speak to anyone other than the patient for history (EMS, parent, family, police, friend...)? What history was obtained from this source @ -No Did you review nursing and triage notes (agree or disagree)? Why? @ -I reviewed and agree with nursing and triage notes Were old charts reviewed (outside hosp., previous admission, EMS record, old EKG, old radiological studies, urgent care reports/EKG's, [facility] records)? Report findings @ -No old charts were reviewed Differential Diagnosis (chest pain, altered mental status, abdominal pain women, abdominal pain men, vaginal bleeding, weakness, fever, dyspnea, syncope, headache, dizziness, GI bleed, back pain, seizure, CVA, palpatations, mental health, musculoskeletal)? @ -hand contusion, hand fracture EKG interpreted by me (3pts min.). @ -None X-rays interpreted by me (1pt min.). @ -X-ray left hand shows no acute fracture CT interpreted by me (1pt min.). @ -None done U/S interpreted by me (1pt. min.). @ -None done What testing was considered but not performed or refused? (CT, X-rays, U/S, labs)? Why? @ -None What meds were considered but not given or refused? Why? @ -None Did you discuss the management of the patient with other professionals (johnathan solitario i.e. , PA, THREAD TWISTER, lab, RT, psych nurse, delinquency prevention social worker, police commanding officer, teacher, intelligence officer basic, disease case manager rn)? Give summary @ -No Was smoking cessation discussed for >3mins.? @ -No Was critical care preformed (if so, how long)? @ -No Were there social determinants of health that impacted care today? How? (Homelessness, low income, unemployed, alcoholism, drug addiction, transportation, low edu. Level, literacy, decrease access to med. care, prison, rehab)? @ -No Was there de-escalation of care discussed even if they declined (Discuss DNR or withdrawal of care, Hospice)? DNR status @ -No What co-morbidities impacted this encounter? (DM, HTN, Smoking, COPD, CAD, Cancer, CVA, ARF, Chemo, Hep., AIDS, mental health diagnosis, sleep apnea, morbid obesity)? @ -None Was patient admitted / discharged? Hospital course, mention meds given and route, prescriptions, significant lab abnormalities, going to OR and other pertinent info. @ -Discharge patient is left-hand contusion will be discharged in stable condition return discussed Undiagnosed new problem with uncertain prognosis? @ -No Drug Therapy requiring intensive monitoring for toxicity (Heparin, Nitro, Insulin, Cardizem)? @ -No Were any procedures done? @ -No Diagnosis/symptom? @ -Left hand contusion Acute, or Chronic, or Acute on Chronic? @ -Acute Uncomplicated (without systemic symptoms) or Complicated (systemic symptoms)? @ -Uncomplicated Side effects of treatment? @ -No Exacerbation, Progression, or Severe Exacerbation? @ -No Poses a threat to life or bodily function? How? (Chest pain, [place], [place], pneumonia, PE, COPD, DKA, ARF, appy, cholecystitis, CVA, Diverticulitis, Homicidal, Suicidal, threat to staff... and all critical care pts) @ -No Disposition Clinical Impression: Contusion of left hand Disposition: HOME SELF-CARE Condition: Stable Instructions (If sedation given, give patient instructions): Hand Sprain (ED) Additional Instructions: Please return to the Emergency Department if symptoms worsen or any other concerns. Is patient prescribed a controlled substance at d/c from ED?: No Referrals: Ness Stanford MD [Primary Care Provider] - 1-2 days Time of Disposition: 16:56
--- NOTE | 2023-07-19 16:53 | XR ---
EXAMINATION TYPE: XR hand complete LT DATE OF EXAM: 07/19/2023 3:51 PM CLINICAL INDICATION:Male, 22 years old with history of 4th/5th digit pain; [facility] COMPARISON: None TECHNIQUE: XR hand complete LT Frontal, lateral and oblique views were obtained. FINDINGS: Normal alignment of the visualized joints. No acute osseous pathology is identified. No e vidence of soft tissue swelling. No radiopaque foreign bodies. IMPRESSION: No acute osseous pathology.
[2023-07-19 17:30] VITALS: BP 127/66; PULSE 78; RESP 16
== END 2023-07-19 17:08 | disposition home or self-care (01) ==
LOC: EC 14:28
DX: S60.222A Contusion of left hand, initial encounter (principal); J45.909 Unspecified asthma, uncomplicated; F17.200 Nicotine dependence, unspecified, uncomplicated; F12.90 Cannabis use, unspecified, uncomplicated; Z91.018 Allergy to other foods; Z88.8 Allergy status to other drugs, medicaments and biological substances; W19.XXXA Unspecified fall, initial encounter; Y99.0 Civilian activity done for income or pay
CPT/HCPCS: 99283

== ENCOUNTER → 2023-07-28 | Outpatient (CLI) | payer OTHER | END | disposition home or self-care (01) | LOC: LABWHC1 10:13 | PROVIDERS: ATTEND Internal Medicine Critical Care Medicine | DX: D86.9 Sarcoidosis, unspecified (principal) | CPT/HCPCS: 36415; 82164 ==

== ENCOUNTER 2023-11-19 07:59 | Emergency (ER) | payer OTHER ==
--- NOTE | 2023-11-19 08:13 | ED ---
General Adult HPI - General Chief complaint: Upper Respiratory Infection Stated complaint: Abdominal Pain Time Seen by Provider: 11/19/23 08:10 Source: patient, RN notes reviewed Mode of arrival: ambulatory Limitations: no limitations - History of Present Illness Initial comments: 23-year-old male, with past medical history of asthma and sarcoidosis, presents to emergency department the chief complaint of headaches, cough, nausea and vomiting. Patient states that he has had these symptoms over the last 4 days and are worsening. Patient states that his cough is productive, and it feels like he is experiencing postnasal drip. he is also experiencing a heaviness sensation in his chest that is worse with inspiration. Patient took Tylenol PM last night to aid in sleep, otherwise has not taken any medications at home to alleviate his symptoms. He is unaware if he experienced any fevers, but states that he is felt periods of cold sweats. Patient is currently on daily prednisone for treatment of his sarcoidosis and has a rescue inhaler as needed. - Related Data Previous Rx's Medication Instructions Recorded Albuterol Inhaler [Ventolin Hfa 2 puff INHALATION RT-QID PRN #8 gm 08/20/21 Inhaler] Acetaminophen Tab [Tylenol] 650 mg PO Q6H #30 tab 02/25/23 Ibuprofen [Motrin] 600 mg PO Q6HR PRN #40 tab 02/25/23 Albuterol Inhaler [Ventolin Hfa 1 - 2 puff INHALATION Q6H PRN #1 11/19/23 Inhaler] each Allergies Allergy/AdvReac Type Severity Reaction Status Date / Time strawberry Allergy Severe Anaphylaxis- Verified 11/19/23 08:11 throat swelling guaifenesin [From Robitussin] AdvReac Anaphylaxis Verified 11/19/23 08:11 ranch dressing Allergy Unknown Rash/Hives Uncoded 11/19/23 08:11 Review of Systems ROS Statement: Those systems with pertinent positive or pertinent negative responses have been documented in the HPI. ROS Other: All systems not noted in ROS Statement are negative. Past Medical History Past Medical History: Asthma Additional Past Medical History / Comment(s): painful lymph node on back of neck History of Any Multi-Drug Resistant Organisms: None Reported Past Surgical History: No Surgical Hx Reported Additional Past Surgical History / Comment(s): lung bx under anesthesia Past Anesthesia/Blood Transfusion Reactions: No Reported Reaction Past Psychological History: No Psychological Hx Reported Smoking Status: Current every day smoker Past Alcohol Use History: None Reported, Occasional Past Drug Use History: Marijuana, Prescription Drug Abuse General Exam Limitations: no limitations General appearance: alert, in no apparent distress Head exam: Present: atraumatic, normocephalic, normal inspection Eye exam: Present: normal appearance, PERRL, EOMI. Absent: scleral icterus, conjunctival injection, periorbital swelling ENT exam: Present: normal exam, mucous membranes moist Neck exam: Present: normal inspection. Absent: tenderness, meningismus, lymphadenopathy Respiratory exam: Present: wheezes (scattered expiratory wheezes). Absent: respiratory distress, rales, rhonchi, stridor Cardiovascular Exam: Present: regular rate, normal rhythm, normal heart sounds. Absent: systolic murmur, diastolic murmur, rubs, gallop, clicks GI/Abdominal exam: Present: soft, hyperactive bowel sounds. Absent: distended, tenderness, guarding, rebound, rigid Extremities exam: Present: normal inspection, full ROM, normal capillary refill. Absent: tenderness, pedal edema, joint swelling, calf tenderness Back exam: Present: normal inspection Neurological exam: Present: alert, oriented X3, CN II-XII intact Psychiatric exam: Present: normal affect, normal mood Skin exam: Present: warm, dry, intact, normal color. Absent: rash Course Vital Signs 11/19/23 11/19/23 11/19/23 08:07 08:27 09:28 Temperature 97.8 F Pulse Rate 78 80 Respiratory 20 18 Rate Blood Pressure 146/96 O2 Sat by Pulse 99 Oximetry 11/19/23 11/19/23 09:39 09:42 Temperature 98.1 F Pulse Rate 80 74 Respiratory 18 Rate Blood Pressure 147/90 O2 Sat by Pulse 97 Oximetry Medical Decision Making - Medical Decision Making Was pt. sent in by a medical professional or institution (, PA, TRANSMITTER OPERATOR, urgent care, hospital, or [facility]...) When possible be specific @ -No Did you speak to anyone other than the patient for history (EMS, parent, family, police, friend...)? What history was obtained from this source @ -No Did you review nursing and triage notes (agree or disagree)? Why? @ -I reviewed and agree with nursing and triage notes Were old charts reviewed (outside hosp., previous admission, EMS record, old EKG, old radiological studies, urgent care reports/EKG's, [facility] records)? Report findings @ -No old charts were reviewed Differential Diagnosis (chest pain, altered mental status, abdominal pain women, abdominal pain men, vaginal bleeding, weakness, fever, dyspnea, syncope, headache, dizziness, GI bleed, back pain, seizure, CVA, palpatations, mental health, musculoskeletal)? @ -COVID 19, RSV, influenza, pneumonia, acute bronchitis, URI, this list is not all inclusive EKG interpreted by me (3pts min.). @ -None X-rays interpreted by me (1pt min.). @ -None done CT interpreted by me (1pt min.). @ -None done U/S interpreted by me (1pt. min.). @ -None done What testing was considered but not performed or refused? (CT, X-rays, U/S, labs)? Why? @ -None What meds were considered but not given or refused? Why? @ -None Did you discuss the management of the patient with other professionals (professionals i.e. , PA, TRANSMITTER OPERATOR, lab, RT, psych nurse, social work instructor, flower buncher or picker, teacher, intelligence support officer, case coordinator)? Give summary @ -No Was smoking cessation discussed for >3mins.? @ -No Was critical care preformed (if so, how long)? @ -No Were there social determinants of health that impacted care today? How? (Homelessness, low income, unemployed, alcoholism, drug addiction, transportation, low edu. Level, literacy, decrease access to med. care, fdc, rehab)? @ -No Was there de-escalation of care discussed even if they declined (Discuss DNR or withdrawal of care, Hospice)? DNR status @ -No What co-morbidities impacted this encounter? (DM, HTN, Smoking, COPD, CAD, Cancer, CVA, ARF, Chemo, Hep., AIDS, mental health diagnosis, sleep apnea, morbid obesity)? @ -None Was patient admitted / discharged? Hospital course, mention meds given and route, prescriptions, significant lab abnormalities, going to OR and other pertinent info. @ -23-year-old male presents emergency department with cold and flulike symptoms. On physical exam patient was found to have scattered expiratory wheezes bilaterally, patient given breathing treatment. cephid results positive for influenza A. patient states that his chest heaviness has improved after breathing treatment. Stable for discharge. Instruct patient to continue to cycle Tylenol Motrin at home for symptomatic relief and increase hydration. Also requesting refill on his rescue inhaler as he does not has 1 at home. Undiagnosed new problem with uncertain prognosis? @ -No Drug Therapy requiring intensive monitoring for toxicity (Heparin, Nitro, Insulin, Cardizem)? @ -No Were any procedures done? @ -No Diagnosis/symptom? @ -Influenza A Acute, or Chronic, or Acute on Chronic? @ -Acute Uncomplicated (without systemic symptoms) or Complicated (systemic symptoms)? @ -Uncomplicated Side effects of treatment? @ -No Exacerbation, Progression, or Severe Exacerbation? @ -No Poses a threat to life or bodily function? How? (Chest pain, [place], [place], pneumonia, PE, COPD, DKA, ARF, appy, cholecystitis, CVA, Diverticulitis, Homicidal, Suicidal, threat to staff... and all critical care pts) @ -No - Lab Data Lab Results 11/19/23 Range/Units 08:25 Influenza Type A (PCR) Detected A (Not Detectd) Influenza Type B (PCR) Not Detected (Not Detectd) RSV (PCR) Not Detected (Not Detectd) SARS-CoV-2 (PCR) Not Detected (Not Detectd) Disposition Clinical Impression: Influenza A Narrative: Please return to the Emergency Department if symptoms worsen or any other concerns. Disposition: HOME SELF-CARE Condition: Good Instructions (If sedation given, give patient instructions): Influenza (ED) Prescriptions: Albuterol Inhaler [Ventolin Hfa Inhaler] 1 - 2 puff INHALATION Q6H PRN #1 each PRN Reason: Shortness Of Breath Is patient prescribed a controlled substance at d/c from ED?: No Referrals: Poly Kauffman FNPBC [Primary Care Provider] - 1-2 days
[2023-11-19 09:25] VITALS: RESP 18
[2023-11-19] MEDS: IPRATROPIUM-ALBUTEROL 3 ML NEB INHALATION STA (09:28)
[2023-11-19 10:00] VITALS: BP 147/90; PULSE 74; TEMP 98.1
== END 2023-11-19 09:57 | disposition home or self-care (01) ==
LOC: EC 07:59
DX: J10.1 Influenza due to other identified influenza virus with other respiratory manifestations (principal); J45.909 Unspecified asthma, uncomplicated; F17.200 Nicotine dependence, unspecified, uncomplicated; Z91.018 Allergy to other foods; F12.90 Cannabis use, unspecified, uncomplicated; Z88.8 Allergy status to other drugs, medicaments and biological substances; Z20.822 Contact with and (suspected) exposure to COVID-19
CPT/HCPCS: 87636; 94640; 99284

== ENCOUNTER 2023-12-03 09:16 | Emergency (ER) | payer OTHER ==
[2023-12-03 09:57] VITALS: TEMP 97.5
[2023-12-03] MEDS: HYDROcodone/APAP 5-325MG 1 EACH TAB PO STA (10:29)
[2023-12-03] MEDS: KETOROLAC 15 MG/ML 1 ML VIAL IVP STA (10:30)
[2023-12-03] MEDS: SODIUM CHLORIDE 0.9% 1,000 ML IV STA (10:39)
[2023-12-03 11:41] LABS: Basophils # (A) 0.1 k/uL (0-0.2); Basophils % (A) 1 %; Eosinophils # (A) 0.1 k/uL (0-0.7); Eosinophils % (A) 2 %; HCT 49.1 % (39.0-53.0); HGB 15.9 gm/dL (13.0-17.5); Lymphocytes # (A) 1.1 k/uL (1.0-4.8); Lymphocytes % (A) 16 %; MCH 29.2 pg (25.0-35.0); MCHC 32.4 g/dL (31.0-37.0); MCV 90.3 fL (80.0-100.0); Mean Platelet Volume 7.6; Monocytes # (A) 0.6 k/uL (0-1.0); Monocytes % (A) 8 %; Neutrophils # (A) 5.2 k/uL (1.3-7.7); Neutrophils % (A) 72 %; Platelet Count 406 k/uL (150-450); RBC 5.44 m/uL (4.30-5.90); RDW 13.6 % (11.5-15.5); WBC 7.2 k/uL (3.8-10.6)
--- NOTE | 2023-12-03 11:43 | XR ---
EXAMINATION TYPE: XR chest 2V DATE OF EXAM: 12/03/2023 COMPARISON: 09/28/2023 TECHNIQUE: PA and lateral views submitted. HISTORY: Cough FINDINGS: The lungs are clear and there is no pneumothorax, pleural effusion, or focal pneumonia. Heart size normal and no overt failure. Osseous structures stable. Azygous lobe and fissure are noted. Coarsened interstitium. Prominence of the right hilum. Micronodular pattern noted on prior exam is less appare nt on today's exam. IMPRESSION: 1. Mild prominence the right hilum may reflect underlying adenopathy from patient's history of sarcoi dosis. 2. Coarsened interstitial and micronodular pattern appears improved from prior exam and may be also a ssociated with sarcoidosis.
[2023-12-03 11:50] LABS: INR 0.9 (<1.2); Partial Thromboplastin Time 27.3 sec (22.0-30.0); Prothrombin Time 10.5 sec (10.0-12.5)
[2023-12-03 12:00] LABS: Amphetamine Screen,Urine Detected (NotDetected); Barbiturate Screen,Urine Not Detected (NotDetected); Benzodiazepines Screen,Urine Not Detected (NotDetected); Cocaine Screen,Urine Not Detected (NotDetected); Methadone Screen, Urine Not Detected (NotDetected); Opiate Screen,Urine Not Detected (NotDetected); Oxycodone Screen, Urine Not Detected (NotDetected); Phencyclidine Screen,Urine Not Detected (NotDetected); Tricyclic Antidepressant,Urine Not Detected (NotDetected); Urn Cannabinoid Scrn Detected (NotDetected)
[2023-12-03 12:12] LABS: ALT 19 U/L (4-49); African American GFR (CKD) >90 (>60 ml/min/1.73 sqM); Anion Gap 7 mmol/L; Blood Urea Nitrogen 12 mg/dL (9-20); Calcium 9.9 mg/dL (8.4-10.2); Carbon Dioxide 24 mmol/L (22-30); Chloride 108 mmol/L (98-107); Glucose 86 mg/dL (74-99); Non-African American GFR(CKD) >90 (>60 ml/min/1.73 sqM); Sodium 139 mmol/L (137-145); Total Protein 6.6 g/dL (6.3-8.2)
[2023-12-03 12:15] LABS: AST 28 U/L (17-59); Alkaline Phosphatase 81 U/L (38-126); Magnesium 1.7 mg/dL (1.6-2.3); Potassium 4.4 mmol/L (3.5-5.1)
--- NOTE | 2023-12-03 12:48 | ED ---
General Adult HPI - General Chief complaint: Anxiety Stated complaint: Chest pain Time Seen by Provider: 12/03/23 09:40 Source: patient, EMS, RN notes reviewed, old records reviewed Mode of arrival: EMS Limitations: no limitations - History of Present Illness Initial comments: Is a 23-year-old male who presents emergency department complaining of anxiety, lightheadedness, palpitations. States he began experiencing this after smoking marijuana from his roommate. He thinks it may have been laced with something and is asking for a drug screen. States he feels anxious and has palpitations. Is also complaining of more heightened dental pain which she has been dealing with and has not yet seen a dentist. Denies any shortness of breath. Denies any asthma history. Does have a history of sarcoidosis and is chronically on steroids. Presents for further evaluation at this time. - Related Data Home Medications Medication Instructions Recorded Confirmed predniSONE 10 mg PO DAILY 12/03/23 12/03/23 Previous Rx's Medication Instructions Recorded Albuterol Inhaler [Ventolin Hfa 2 puff INHALATION RT-QID PRN #8 gm 08/20/21 Inhaler] Amoxic-Pot Clav 875-125Mg 1 tab PO Q12HR 7 Days #14 tab 12/03/23 [Augmentin 875-125] Allergies Allergy/AdvReac Type Severity Reaction Status Date / Time strawberry Allergy Severe Anaphylaxis- Verified 12/03/23 11:09 throat swelling guaifenesin [From Robitussin] Allergy Anaphylaxis Verified 12/03/23 11:09 ranch dressing Allergy Unknown Rash/Hives Uncoded 11/19/23 08:11 Review of Systems ROS Statement: Those systems with pertinent positive or pertinent negative responses have been documented in the HPI. Review of Systems: CONST: Denies fever EYES: Denies blurry vision ENT: Denies nasal congestion C/V: Endorses palpitations, generalized chest tightness RESP: Denies shortness of breath GI: Denies abdominal pain : Denies dysuria SKIN: Denies rash. MSK: Denies joint pain. NEURO: Denies headache ROS Other: All systems not noted in ROS Statement are negative. Past Medical History Past Medical History: Asthma Additional Past Medical History / Comment(s): painful lymph node on back of neck History of Any Multi-Drug Resistant Organisms: None Reported Past Surgical History: No Surgical Hx Reported Additional Past Surgical History / Comment(s): lung bx under anesthesia Past Anesthesia/Blood Transfusion Reactions: No Reported Reaction Past Psychological History: No Psychological Hx Reported Smoking Status: Current every day smoker Past Alcohol Use History: None Reported, Occasional Past Drug Use History: Marijuana, Prescription Drug Abuse General Exam - General Exam Comments Initial Comments: General: Appears anxious HEAD: Normal with no signs of head trauma. EYES: PERRLA, EOMI, conjunctiva normal, no discharge. ENT: Hearing grossly intact, normal oropharynx. RESPIRATORY: Clear breath sounds bilaterally. No wheezes, rales, or rhonchi. C/V: Regular rate and rhythm. S1 and S2 auscultated, no edema, peripheral pulses 2+ and intact throughout ABD: Abd is soft, nontender, nondistended EXT: Normal range of motion, no obvious deformity SKIN: No rashes or lesions observed on exposed skin. NEURO: Alert and oriented x 4. Limitations: no limitations Course Vital Signs 12/03/23 12/03/23 12/03/23 09:26 10:40 11:42 Temperature 97.5 F L Pulse Rate 77 76 75 Respiratory 18 16 16 Rate Blood Pressure 152/97 143/88 O2 Sat by Pulse 97 100 99 Oximetry 12/03/23 13:10 Temperature Pulse Rate 76 Respiratory 18 Rate Blood Pressure 147/94 O2 Sat by Pulse 97 Oximetry Medical Decision Making - Medical Decision Making Was pt. sent in by a medical professional or institution (RAVI José, ROTOR BALANCER, urgent care, hospital, or [facility]...) When possible be specific @ -No Did you speak to anyone other than the patient for history (EMS, parent, family, police, friend...)? What history was obtained from this source @ -No Did you review nursing and triage notes (agree or disagree)? Why? @ -I reviewed and agree with nursing and triage notes Were old charts reviewed (outside hosp., previous admission, EMS record, old EKG, old radiological studies, urgent care reports/EKG's, [facility] records)? Report findings @ -Old charts reviewed Differential Diagnosis (chest pain, altered mental status, abdominal pain women, abdominal pain men, vaginal bleeding, weakness, fever, dyspnea, syncope, headache, dizziness, GI bleed, back pain, seizure, CVA, palpatations, mental health, musculoskeletal)? @ -Palpitations, drug intoxication, anxiety, asthma, dental pain. This list is not all inclusive. EKG interpreted by me (3pts min.). @ -As above X-rays interpreted by me (1pt min.). @ -Chest x-ray reveals no obvious acute cardiopulmonary process. Evidence of sarcoidosis. CT interpreted by me (1pt min.). @ -None done U/S interpreted by me (1pt. min.). @ -None done What testing was considered but not performed or refused? (CT, X-rays, U/S, labs)? Why? @ -None What meds were considered but not given or refused? Why? @ -None Did you discuss the management of the patient with other professionals (professionals i.e. , PA, ROTOR BALANCER, lab, RT, psych nurse, social service director, remanufacturing technician, teacher, health officer, caser in)? Give summary @ -No Was smoking cessation discussed for >3mins.? @ -No Was critical care preformed (if so, how long)? @ -No Were there social determinants of health that impacted care today? How? (Homele ssness, low income, unemployed, alcoholism, drug addiction, transportation, low edu. Level, literacy, decrease access to med. care, nursing home, rehab)? @ -No Was there de-escalation of care discussed even if they declined (Discuss DNR or withdrawal of care, Hospice)? DNR status @ -No What co-morbidities impacted this encounter? (DM, HTN, Smoking, COPD, CAD, Cancer, CVA, ARF, Chemo, Hep., AIDS, mental health diagnosis, sleep apnea, morbid obesity)? @ -None Was patient admitted / discharged? Hospital course, mention meds given and route, prescriptions, significant lab abnormalities, going to OR and other pertinent info. @ -Patient presents for palpitations, chest discomfort, increased anxiety after smoking marijuana. Thinks it was laced with something. Was his roommates marijuana. States he thinks there might have been an "upper" in it. States palpitations and chest discomfort are resolving but he still feels anxious. Presents for workup. Denies any shortness of breath. Denies any nausea or vomiting. Does smoke marijuana but does not use any other drugs. Patient also has right upper dental pain. Patient administered Mant[place], Toradol, 1 L fluid bolus. Will reevaluate. Vital signs are within acceptable limits. EKG shows no signs of acute ischemia. Laboratory studies in acceptable limits. Chest x-ray unremarkable for acute process. UDS is positive for amphetamine/methamphetamine Patient is asymptomatic on reevaluation. I discussed results with him. He is feeling improved and would like to go home. I believe it is reasonable. Discussed symptoms likely secondary to marijuana being laced with amphetamines. He has never taken these before. I recommended he avoid any further marijuana from this individual in the future. He was in agreement this plan. For his d ental pain, I did provide follow-up with on-call oral surgeon as well as a starter pack of Tylenol 3's and started the patient on Augmentin. He was in agreement this plan. I will provide the patient with a prescription for Augmentin. I instructed the patient to follow up with their PCP in the next 1-3 days.. I explained that the patient should return to the emergency department if they experience any worsening symptoms. Strict return precautions were discussed with the patient. The patient expressed understanding of these instructions. I answered all questions that the patient had. The patient was discharged home in good condition with their prescriptions and follow up information. Undiagnosed new problem with uncertain prognosis? @ -No Drug Therapy requiring intensive monitoring for toxicity (Heparin, Nitro, Insulin, Cardizem)? @ -No Were any procedures done? @ -No Diagnosis/symptom? @ -Anxiety, to take, adverse effect of amphetamines Acute, or Chronic, or Acute on Chronic? @ -Acute Uncomplicated (without systemic symptoms) or Complicated (systemic symptoms)? @ -Complicated Side effects of treatment? @ -No Exacerbation, Progression, or Severe Exacerbation? @ -No Poses a threat to life or bodily function? How? (Chest pain, [place], [place], pneumonia, PE, COPD, DKA, ARF, appy, cholecystitis, CVA, Diverticulitis, Homicidal, Suicidal, threat to staff... and all critical care pts) @ -Unlikely - Lab Data Result diagrams: 12/03/23 10:27 12/03/23 10: Lab Results 12/03/23 12/03/23 12/03/23 Range/Units 10:27 10: 10:27 WBC 7.2 (3.8-10.6) k/uL RBC 5.44 (4.30-5.90) m/uL Hgb 15.9 (13.0-17.5) gm/dL Hct 49.1 (39.0-53.0) % MCV 90.3 (80.0-100.0) fL MCH 29.2 (25.0-35.0) pg MCHC 32.4 (31.0-37.0) g/dL RDW 13.6 (11.5-15.5) % Plt Count 406 (150-450) k/uL MPV 7.6 Neutrophils % 72 % Lymphocytes % 16 % Monocytes % 8 % Eosinophils % 2 % Basophils % 1 % Neutrophils # 5.2 (1.3-7.7) k/uL Lymphocytes # 1.1 (1.0-4.8) k/uL Monocytes # 0.6 (0-1.0) k/uL Eosinophils # 0.1 (0-0.7) k/uL Basophils # 0.1 (0-0.2) k/uL PT 10.5 (10.0-12.5) sec INR 0.9 (<1.2) APTT 27.3 (22.0-30.0) sec Sodium 139 (137-145) mmol/L Potassium 4.4 (3.5-5.1) mmol/L Chloride 108 H (98-107) mmol/L Carbon Dioxide 24 (22-30) mmol/L Anion Gap 7 mmol/L BUN 12 (9-20) mg/dL Creatinine 0.64 L (0.66-1.25) mg/dL Est GFR (CKD-EPI)AfAm >90 (>60 ml/min/1.73 sqM) Est GFR (CKD-EPI)NonAf >90 (>60 ml/min/1.73 sqM) Glucose 86 (74-99) mg/dL Calcium 9.9 (8.4-10.2) mg/dL Magnesium 1.7 (1.6-2.3) mg/dL Total Bilirubin 1.0 (0.2-1.3) mg/dL AST 28 (17-59) U/L ALT 19 (4-49) U/L Alkaline Phosphatase 81 (38-126) U/L Troponin I (0.000-0.034) ng/mL Total Protein 6.6 (6.3-8.2) g/dL Albumin 4.0 (3.5-5.0) g/dL Urine Opiates Screen (NotDetected) Ur Oxycodone Screen (NotDetected) Urine Methadone Screen (NotDetected) Ur Barbiturates Screen (NotDetected) U Tricyclic Antidepress (NotDetected) Ur Phencyclidine Scrn (NotDetected) Ur Amphetamines Screen (NotDetected) U Methamphetamines Scrn (NotDetected) U Benzodiazepines Scrn (NotDetected) Urine Cocaine Screen (NotDetected) U Marijuana (THC) Screen (NotDetected) 12/03/23 12/03/23 Range/Units 10:27 10:27 WBC (3.8-10.6) k/uL RBC (4.30-5.90) m/uL Hgb (13.0-17.5) gm/dL Hct (39.0-53.0) % MCV (80.0-100.0) fL MCH (25.0-35.0) pg MCHC (31.0-37.0) g/dL RDW (11.5-15.5) % Plt Count (150-450) k/uL MPV Neutrophils % % Lymphocytes % % Monocytes % % Eosinophils % % Basophils % % Neutrophils # (1.3-7.7) k/uL Lymphocytes # (1.0-4.8) k/uL Monocytes # (0-1.0) k/uL Eosinophils # (0-0.7) k/uL Basophils # (0-0.2) k/uL PT (10.0-12.5) sec INR (<1.2) APTT (22.0-30.0) sec Sodium (137-145) mmol/L Potassium (3.5-5.1) mmol/L Chloride (98-107) mmol/L Carbon Dioxide (22-30) mmol/L Anion Gap mmol/L BUN (9-20) mg/dL Creatinine (0.66-1.25) mg/dL Est GFR (CKD-EPI)AfAm (>60 ml/min/1.73 sqM) Est GFR (CKD-EPI)NonAf (>60 ml/min/1.73 sqM) Glucose (74-99) mg/dL Calcium (8.4-10.2) mg/dL Magnesium (1.6-2.3) mg/dL Total Bilirubin (0.2-1.3) mg/dL AST (17-59) U/L ALT (4-49) U/L Alkaline Phosphatase (38-126) U/L Troponin I 0.031 (0.000-0.034) ng/mL Total Protein (6.3-8.2) g/dL Albumin (3.5-5.0) g/dL Urine Opiates Screen Not Detected (NotDetected) Ur Oxycodone Screen Not Detected (NotDetected) Urine Methadone Screen Not Detected (NotDetected) Ur Barbiturates Screen Not Detected (NotDetected) U Tricyclic Antidepress Not Detected (NotDetected) Ur Phencyclidine Scrn Not Detected (NotDetected) Ur Amphetamines Screen Detected H (NotDetected) U Methamphetamines Scrn Detected H (NotDetected) U Benzodiazepines Scrn Not Detected (NotDetected) Urine Cocaine Screen Not Detected (NotDetected) U Marijuana (THC) Screen Detected H (NotDetected) - EKG Data -: EKG Interpreted by Me EKG Comments: 12-lead Electrocardiogram Interpretation Note EKG was reviewed and interpreted by myself. 12-lead ECG performed at 0924 is interpreted by me as revealing normal sinus rhythm at a rate of 76 beats per minute. [place] is normal. [place] interval is 127 ms, QRS duration is 89 ms, QTc is 357 ms.. There were no ST or T wave abnormalities to suggest myocardial ischemia or injury. R wave progression across the precordium was satisfactory. By my interpretation this EKG is non-diagnostic for acute ischemia. Disposition Clinical Impression: Anxiety, Adverse effect of amphetamines, initial encounter, Toothache Disposition: HOME SELF-CARE Condition: Good Instructions (If sedation given, give patient instructions): Generalized Anxiety Disorder (ED) Prescriptions: Amoxic-Pot Clav 875-125Mg [Augmentin 875-125] 1 tab PO Q12HR 7 Days #14 tab Is patient prescribed a controlled substance at d/c from ED?: No Referrals: Poly Kauffman FNPBC [Primary Care Provider] - 1-2 days Derian Edward DDS [STAFF PHYSICIAN] - 1-2 days Time of Disposition: 12:47
[2023-12-03] MEDS: AMOXIC-POT CLAV 875-125MG 1 EACH TAB PO STA (13:01)
[2023-12-03] MEDS: ACET/COD 300 MG/30 MG STARTER PACK 6 TAB BTL PO STA (13:01)
[2023-12-03 13:38] VITALS: BP 147/94; PULSE 76; RESP 18
== END 2023-12-03 13:22 | disposition home or self-care (01) ==
LOC: EC 09:16
DX: F41.9 Anxiety disorder, unspecified (principal); K08.89 Other specified disorders of teeth and supporting structures; T43.625A Adverse effect of amphetamines, initial encounter; F17.200 Nicotine dependence, unspecified, uncomplicated; Z88.8 Allergy status to other drugs, medicaments and biological substances; Z91.018 Allergy to other foods; Z91.09 Other allergy status, other than to drugs and biological substances
CPT/HCPCS: 36415; 80053; 83735; 84484; 85025; 85610; 85730; 80306; 71046; 99285; 96374; 96361; J1885

== ENCOUNTER → 2024-03-18 | Outpatient (CLI) | payer OTHER ==
[2024-03-18 18:23] LABS: HCT 47.3 % (39.6-50.0); HGB 16.3 g/dL (13.0-17.0); MCH 29.6 pg (27.0-32.0); MCHC 34.5 g/dL (32.0-37.0); Mean Platelet Volume 9.7 FL (9.5-12.2); NRBC Per 100 WBC 0 X 10*3/uL (0.00-0.01); Platelet Count 379 X 10*3/uL (140-440); WBC 7.51 X 10*3/uL (4.50-10.00)
[2024-03-18 18:45] LABS: ALT 20 U/L (10-49); AST 25 U/L (14-35); Albumin 4.4 g/dL (3.8-4.9); Albumin/Globulin Ratio 1.83 Ratio (1.60-3.17); Alkaline Phosphatase 62 U/L (41-126); Blood Urea Nitrogen 9.2 mg/dL (9.0-27.0); Calcium 9.8 mg/dL (8.7-10.3); Chloride 103 mmol/L (96-109); Globulin 2.4 g/dL (1.6-3.3); Glucose 82 mg/dL (70-110); Potassium 4.4 mmol/L (3.5-5.5); Sodium 139 mmol/L (135-145); Total Bilirubin 0.7 mg/dL (0.3-1.2); Total Protein 6.8 g/dL (6.2-8.2)
== END | disposition home or self-care (01) ==
LOC: LABWHC1 12:45
PROVIDERS: ATTEND Internal Medicine Critical Care Medicine
DX: D86.9 Sarcoidosis, unspecified (principal)
CPT/HCPCS: 36415; 80053; 82164; 85027

== ENCOUNTER → 2024-03-18 | Outpatient (CLI) | payer OTHER ==
--- NOTE | 2024-03-28 17:23 | PE ---
EXAMINATION TYPE: PET CT fusion skull to thigh DATE OF EXAM: 03/18/2024 COMPARISON: No recent pertinent CT Prior PET/CT: 04/11/2023 HISTORY: Lymphadenopathy TECHNIQUE: Following the intravenous administration of 13.87 mCi of F-18 FDG, whole body images are performed from the skull base to the midthigh. Images are reviewed on the computer in the coronal, a xial, and sagittal planes. Reconstructed rotating images are created on independent workstation and reviewed on the computer. A localization and attenuation correction CT is performed in conjunction with the PET scan. DLP: 388.74 mGycm SCAN: Subsequent Blood glucose: 86 mg/dL Average Mediastinum SUV: 1.76Average Liver SUV: 2.72 FINDINGS: NECK: No abnormal uptake THORAX: There is mild increased uptake within small lymph nodes within the left axillary region. Thi s is mildly elevated SUV, left axillary region 2.26, image 67. Some mild right axillary uptake is pre sent, image 71, SUV 2.67. ABDOMEN: No abnormal uptake PELVIS: There is a focus of increased radiotracer left inguinal region with an SUV of 5.27. Addition al more intermediate signal lymph node uptake is present bilaterally. OSSEOUS STRUCTURES: No abnormal uptake. LOCALIZATION CT: There is an air-fluid level within right maxillary sinus. Correlate for acute right maxillary sinusitis. COMPARISON: Findings have significantly improved over the interval. Previous diffuse uptake includin g neck and thorax and abdomen have essentially resolved from comparison. Uptake within the inguinal l ymph nodes has significantly improved with some mild residual remaining. IMPRESSION: 1. Mild residual uptake within axillary and inguinal small lymph nodes. 2. Previous abnormal uptake is otherwise resolved including thorax and abdomen.
== END | disposition home or self-care (01) ==
LOC: RADPETMAIN 10:56
PROVIDERS: ATTEND Internal Medicine Critical Care Medicine
DX: R59.1 Generalized enlarged lymph nodes (principal); R93.7 Abnormal findings on diagnostic imaging of other parts of musculoskeletal system
CPT/HCPCS: 78815; A9552

== ENCOUNTER → 2024-11-04 | Outpatient (CLI) | payer OTHER ==
--- NOTE | 2024-11-04 20:19 | PE ---
EXAMINATION TYPE: PET CT fusion skull to thigh DATE OF EXAM: 11/04/2024 CLINICAL INDICATION:Male, 24 years old with history of R59.0 Lymphadenopathy; TECHNIQUE: Following the intravenous administration of 11.8 mCi of F-18 FDG, whole body images are performed from the skull base to the Mid thigh. Images are reviewed on the computer in the coronal, axial, and sagittal planes. Reconstructed rotating images are created on independent workstation and reviewed on the computer. A non-contrast CT is performed in conjunction with the PET scan. Glucose level 99 mg/dL CT DLP: 474 mGycm, Automated exposure control for dose reduction was used. COMPARISON: CT None, PET/CT 04/11/2023, 03/18/2024, MRI: None FINDINGS: Mediastinal SUV mean is 1.8. Hepatic parenchyma SUV mean is 2.8. SKULL BASE AND NECK: 1. Posterior right neck lymph node max SUV 4.5. Previously not visualized. Right low neck focus of u ptake also present max SUV 4.0. These are both subcentimeter in size and not well correlated with fin dings on CT imaging. 2. Wall tonsil uptake bilaterally max SUV 7.1 on the right and 4.6 on the left. CHEST, MEDIASTINUM, AND HILAR REGION: * Mild bilateral axillary uptake within lymph nodes max history of the right 2.9 previously 3.4 and on the left 2.2 previously 4.4. * Prevascular space mediastinal uptake max SUV 3.6, previously 4.5. ABDOMEN AND PELVIS: Patchy areas of abnormal uptake within the kidneys bilaterally some of which is in the renal cortexes which is not seen on priors. Some of this does not appear to be in the collecting system. MUSCULOSKELETAL STRUCTURES: No suspicious radiotracer activity. Right inguinal region lymph nodes max SUV 4.9, on the left Max SUV 2.5. Previously 4.3 [address]: Azygous fissure. Mild gynecomastia changes bilaterally. IMPRESSION: 1. Two foci of uptake within the right neck possibly representing recurrence. These are not seen on prior. Additional persistent uptake within the bilateral axilla mediastinum and inguinal regions.. M ild uptake within the mediastinum present. 2. New Patchy uptake within the kidneys some of which in the renal cortices unclear if this is artif act or lymphoma involvement of the kidneys. Consider further workup of the kidneys with MRI renal mas s protocol. [facility], , 11/04/2024 8:16 PM
== END | disposition home or self-care (01) ==
LOC: RADPETMAIN 10:23
PROVIDERS: ATTEND Internal Medicine Critical Care Medicine
DX: R59.0 Localized enlarged lymph nodes (principal); N28.89 Other specified disorders of kidney and ureter
CPT/HCPCS: 78815; A9552

== ENCOUNTER → 2024-11-18 | Outpatient (CLI) | payer OTHER ==
[2024-11-18 14:52] LABS: Basophils # (A) 0.04 X 10*3/uL (0.00-0.10); Basophils % (A) 0.8 %; Eosinophils # (A) 0.09 X 10*3/uL (0.04-0.35); Eosinophils % (A) 1.7 %; HCT 45.1 % (39.6-50.0); Lymphocytes # (A) 1.16 X 10*3/uL (0.90-5.00); Lymphocytes % (A) 22.5 %; MCH 29.7 pg (27.0-32.0); MCHC 35.5 g/dL (32.0-37.0); MCV 83.8 FL (80.0-97.0); Mean Platelet Volume 9.4 FL (9.5-12.2); Monocytes # (A) 0.65 X 10*3/uL (0.20-1.00); Monocytes % (A) 12.6 %; NRBC Per 100 WBC 0 X 10*3/uL (0.00-0.01); Neutrophils # (A) 3.19 X 10*3/uL (1.80-7.70); Platelet Count 390 X 10*3/uL (140-440); RBC 5.38 X 10*6/uL (4.40-5.60); WBC 5.15 X 10*3/uL (4.50-10.00)
[2024-11-18 15:14] LABS: ALT 17 U/L (10-49); AST 24 U/L (14-35); Albumin 4.8 g/dL (3.8-4.9); Alkaline Phosphatase 84 U/L (41-126); Blood Urea Nitrogen 14.8 mg/dL (9.0-27.0); Calcium 9.9 mg/dL (8.7-10.3); Carbon Dioxide 22.5 mmol/L (21.6-31.8); Chloride 104 mmol/L (96-109); Glucose 92 mg/dL (70-110); Potassium 4.1 mmol/L (3.5-5.5); Sodium 140 mmol/L (135-145); Total Bilirubin 1.8 mg/dL (0.3-1.2); Total Protein 7.8 g/dL (6.2-8.2)
== END | disposition home or self-care (01) ==
LOC: LABWHC1 10:56
PROVIDERS: ATTEND Internal Medicine Critical Care Medicine
DX: D86.9 Sarcoidosis, unspecified (principal)
CPT/HCPCS: 36415; 80053; 82164; 85025

== ENCOUNTER → 2024-12-12 | Outpatient (CLI) | payer OTHER ==
[2024-12-12 15:29] LABS: T4, Free (Free Thyroxine) 0.88 ng/dL (0.80-1.80)
== END | disposition home or self-care (01) ==
LOC: LABWHC1 10:04
PROVIDERS: ATTEND Internal Medicine Critical Care Medicine
DX: D86.9 Sarcoidosis, unspecified (principal)
CPT/HCPCS: 36415; 82533; 84439; 84443